=== PATIENT | female | born 1970 | race Caucasian/White ===

== ENCOUNTER → 2018-03-21 | Outpatient (CLI) | payer MEDICAID | END | disposition home or self-care (01) | LOC: CFH 11:52 | PROVIDERS: ATTEND Specialist | DX: Z12.31 Encounter for screening mammogram for malignant neoplasm of breast (principal) | CPT/HCPCS: 77063; 77067 ==

== ENCOUNTER 2018-04-17 12:40 | Outpatient (CLI) | payer MEDICAID ==
[2018-04-17] MEDS ORDERED: PROZAC PO (13:12)
[2018-04-24] MEDS ORDERED: FLUO10CA13 PO (11:08)
[2018-04-25] MEDS ORDERED: ESTR1TAB15 PO (09:46)
[2018-04-25] MEDS ORDERED: IBUP200T49 PO (09:48)
[2018-04-25] MEDS ORDERED: OXYC5CAP2 PO (09:49)
== END 2018-04-24 12:40 | disposition home or self-care (01) ==
LOC: STAR 12:40
PROVIDERS: ATTEND Specialist
DX: Z02.9 Encounter for administrative examinations, unspecified (principal)

== ENCOUNTER 2018-04-24 10:34 | Observation (INO) | payer MEDICAID ==
[~2018-04-24] VITALS: Ht 177.8 cm; Wt 79.7 kg
[~2018-04-24 10:34] MED LIST: CEFAZOLIN 1,000 MG ONE; DEXAMETHASONE 4 MG/ML, 1ML ONE; GLYCOPYRROLATE 0.2MG/1ML, 5ML ONE; KETOROLAC 30 MG/1 ML ONE; METOCLOPRAMIDE 5 MG/ML, 2ML ONE; NEOSTIGMINE 1 MG/ML, 10ML ONE; ONDANSETRON 2MG/ML, 2ML ONE; PROPOFOL 10 MG/ML, 20ML ONE; PROZAC PO; ROCURONIUM 10MG/ML,5ML ONE
[2018-04-24] MEDS ORDERED: PHENAZOPYRIDINE 200 MG TABLET PO ONE (11:01)
[2018-04-24] MEDS ORDERED: FLUO10CA13 PO (11:08)
[2018-04-24] MEDS ORDERED: LACTATED RINGERS 1,000 ML IV SCH (11:08)
[2018-04-24 11:54] LABS: HCG UR SG 1.025 (1.003-1.030)
[2018-04-24] MEDS ORDERED: BUPIVACAINE/PF-EPI 0.25% 1:200K ONE (12:33)
[2018-04-24] MEDS ORDERED: FLUORESCEIN SODIUM 500 MG/5 ML ONE (12:33)
[2018-04-24] MEDS ORDERED: FENTANYL PF 100 MCG/2ML ONE ×2 (12:55→15:03)
[2018-04-24] MEDS ORDERED: MIDAZOLAM 1 MG/ML, 2ML ONE (12:55)
[2018-04-24] MEDS ORDERED: HYDROmorphone 1 MG/ML, 1ML IV PRN (15:00)
[2018-04-24] MEDS ORDERED: OXYcodone 5 MG/5 ML ORAL.SOL UDC PO PRN (15:00)
[2018-04-24] MEDS ORDERED: ONDANSETRON 2MG/ML, 2ML IVPush PRN (15:00)
[2018-04-24] MEDS ORDERED: MIDAZOLAM 1 MG/ML, 2ML IV PRN (15:00)
[2018-04-24] MEDS ORDERED: MEPERIDINE/PF 25MG/0.5ML IVPush PRN (15:00)
[2018-04-24] MEDS ORDERED: LABETALOL 5MG/ML, 20ML IV PRN (15:00)
[2018-04-24] MEDS ORDERED: ACETAMINOPHEN 650 MG/20.3 ML UDC ONE (15:02)
[2018-04-24] MEDS ORDERED: OXYcodone 5 MG/5 ML ORAL.SOL UDC ONE (15:03)
[2018-04-24] MEDS: FENTANYL PF 100 MCG/2ML IV PRN ×4 (15:06→15:33)
[2018-04-24] MEDS ORDERED: ACETAMINOPHEN 650 MG/20.3 ML UDC PO PRN (15:30)
[2018-04-24] MEDS ORDERED: [UNRECOGNIZED DRUG - OTHER] IV SCH (17:00)
[2018-04-24] MEDS ORDERED: ONDANSETRON 2MG/ML, 2ML IV PRN (17:00)
[2018-04-24] MEDS ORDERED: MEPERIDINE/PF 100 MG/ML IM PRN (17:00)
[2018-04-24] MEDS: D5%-LACTATED RINGERS 1,000 ML IV SCH (17:19)
[2018-04-24] MEDS: KETOROLAC 30 MG/1 ML IV SCH ×2 (17:19→23:06)
[2018-04-24 18:23] VITALS: BP 99/70
[2018-04-24] MEDS: SIMETHICONE 80 MG CHEW TAB PO SCH (20:33)
[2018-04-24] MEDS: OXYcodone 5 MG/5 ML ORAL.SOL UDC PO PRN (22:22)
[2018-04-24 23:14] VITALS: BP 101/66
[2018-04-25] MEDS: D5%-LACTATED RINGERS 1,000 ML IV SCH ×2 (01:01→09:33)
[2018-04-25 02:17] VITALS: BP 116/78
[2018-04-25] MEDS: KETOROLAC 30 MG/1 ML IV SCH ×2 (05:27→10:29)
[2018-04-25 07:17] VITALS: BP 116/70
[2018-04-25] MEDS: OXYcodone 5 MG/5 ML ORAL.SOL UDC PO PRN (07:22)
[2018-04-25] MEDS: SIMETHICONE 80 MG CHEW TAB PO SCH (09:31)
[2018-04-25] MEDS ORDERED: ESTR1TAB15 PO (09:46)
[2018-04-25] MEDS ORDERED: IBUP200T49 PO (09:48)
[2018-04-25] MEDS ORDERED: OXYC5CAP2 PO (09:49)
[2018-04-25] MEDS ORDERED: IBUPROFEN 600 MG TABLET PO SCH (16:00)
== END 2018-04-25 11:00 | disposition home or self-care (01) ==
LOC: OUT 10:34 → 4NOR 16:20 → OUT 16:52 → DCLOUNGE 04-25 10:45
PROVIDERS: ADMIT Specialist; ATTEND Specialist
DX: N81.4 Uterovaginal prolapse, unspecified (principal); N83.11 Corpus luteum cyst of right ovary; N83.202 Unspecified ovarian cyst, left side
CPT/HCPCS: 36415; 58552; 81025; 85014; 85018; 88307; 96374; 96376; G0378; J0690; J1100; J1885; J2250; J2405; J2704; J2710; J2765; J3010; J3490; J7120; J7121